=== PATIENT | male | born 1985 | race Caucasian/White ===

== ENCOUNTER 2021-12-01 09:27 | Emergency (ER) | payer OTHER ==
[2021-12-01 09:46] VITALS: BP 139/90; PULSE 55; RESP 16; TEMP 98.8; BMI 30.6
[2021-12-01] MEDS ORDERED: IBUPROFEN 600 MG TABLET (FP) PO ONE ×2 (09:55→09:57)
== END 2021-12-01 11:13 | disposition home or self-care (01) ==
LOC: FER 09:27
DX: S43.402A Unspecified sprain of left shoulder joint, initial encounter (principal); W19.XXXA Unspecified fall, initial encounter
CPT/HCPCS: 73030-TC-LT-FY; 99283-25